=== PATIENT | female | born 1945 | race Asian ===

== ENCOUNTER 2017-07-07 20:35 | Emergency (ER) | payer OTHER ==
[2017-07-07] MEDS: IPRATROPIUM (NEB) 0.5 MG/2.5 ML AMP NEB (22:58)
[2017-07-07] MEDS: ALBUTEROL 0.083% (NEB) 2.5 MG/3 ML AMP NEB (22:58)
[2017-07-07] MEDS: CEFTRIAXONE 1 GM INJ IM (23:07)
== END 2017-07-07 23:34 | disposition home or self-care (01) ==
LOC: FTE 20:35
DX: J20.9 Acute bronchitis, unspecified (principal); I10 Essential (primary) hypertension; E11.9 Type 2 diabetes mellitus without complications; Z79.84 Long term (current) use of oral hypoglycemic drugs; Z79.82 Long term (current) use of aspirin
CPT/HCPCS: 94664; 96372; 99284-25

== ENCOUNTER 2017-07-14 12:30 | Emergency (ER) | payer OTHER | END 2017-07-14 17:49 | disposition home or self-care (01) | LOC: FTE 12:30 | DX: R05 Cough (principal); I10 Essential (primary) hypertension; E11.9 Type 2 diabetes mellitus without complications; Z72.89 Other problems related to lifestyle; Z79.82 Long term (current) use of aspirin; Z79.84 Long term (current) use of oral hypoglycemic drugs | CPT/HCPCS: 71045; 99283-25 ==